=== PATIENT | male | born 1965 | race Caucasian/White ===

== ENCOUNTER → 2017-12-30 | Outpatient (CLI) | payer OTHER ==
[~2017-12-30] MED LIST: DRON400T PO; LISI10TA PO; SERT50TA PO; XRL20 PO
--- NOTE | 2017-12-30 12:23 | DIAGNOSTIC IMAGING REPORT ---
L HAND MIN 3 VIEWS ROUTINE, L WRIST MIN 3 VIEWS ROUTINE HISTORY: 52 years-old Male PAIN OF L THUMB acute left thumb pain and left wrist pain status post trauma COMPARISON: None available TECHNIQUE: 3 views of the left hand and 4 views of the left wrist FINDINGS: HAND: Mild degenerative changes about the first carpal metacarpal joint. No acute fracture or dislocation. No opaque foreign body. WRIST: No acute fracture, dislocation or significant degenerative changes. Soft tissues are unremarkable without opaque or body. IMPRESSION: No acute fracture or dislocation. The above report was generated using voice recognition software. It may contain grammatical, syntax or spelling errors. Electronically signed by: Vamsi Mesa M.D. 12/30/2017 12:22 PM Dictated Date/Time: 12/30/2017 12:19 PM
== END | disposition home or self-care (01) ==
LOC: C.RAD 11:56
PROVIDERS: ATTEND Family Medicine
DX: M25.532 Pain in left wrist (principal); M79.645 Pain in left finger(s)